=== PATIENT | male | born 1960 | race Two or more races ===

== ENCOUNTER 2021-09-16 17:59 | Emergency (ER) | payer OTHER ==
[~2021-09-16] VITALS: Ht 177.8 cm; Wt 83.5 kg
[2021-09-16 18:58] LABS: HEMATOCRIT 41.3 % (36.7-47.1); MEAN CORPUSCULAR HEMOGLOBIN 29.9 uug (23.8-33.4); MEAN CORPUSCULAR VOLUME 86.7 fL (73.0-96.2); PLATELET COUNT (AUTO) 295 K/uL (152-348)
--- NOTE | 2021-09-16 19:20 | NUR ---
Recieved thorough report from LEX Chavira at pt bedside. Pt aaox4 with good color, temp and appearance. VSS, PE WNL. Pt denies any pain, sob, n/v, dizziness or discomfort of any kind. Pt states that he feels much better and want to go home and is anxious to be discharged. I told him that i will find out what we are waiting for and try to expodite his discharge.
[2021-09-16 19:26] LABS: BILIRUBIN,DIRECT 0.1 mg/dL (0.0-0.2); BILIRUBIN,TOTAL 0.3 mg/dL (0.2-1.0); TOTAL PROTEIN, SERUM 7.9 g/dL (6.4-8.2)
--- NOTE | 2021-09-16 19:41 | NUR ---
PT IS IN ROOM #2A. DR HUMPHRIES EVALUATED THE PT. REPORT WAS GIVEN TO ADDICTIONS THERAPISTDIRECTOR DATA MANAGEMENT.
--- NOTE | 2021-09-16 20:08 | NUR ---
OLIVE currently working on DC instructions and aftercare paperwork. Pt will be good to go home as soon as she gives me the green light. Pt was informed and is getting ready to be DCed home.
--- NOTE | 2021-09-16 20:21 | NUR ---
Pt reassessed with full PE WNL and VSS. Pt is a very fit and active 60yo male who works out regularly and is otherwise healthy with no medical issues. Last VS 125/75 65bpm, 99% RA. Pt states that he wants to go straight to the gym and "get in a work out". Pt given DC instuctions and had him sign out. Pt confirmed understanding of DC instructions.
[2021-09-16 20:25] VITALS: BP 125/75
== END 2021-09-16 20:32 | disposition home or self-care (01) ==
LOC: ER 18:15
DX: R07.9 Chest pain, unspecified (principal)
CPT/HCPCS: 36415; 70030-TC; 71045; 85025; 93005; A4663